=== PATIENT | female | born 1950 | race American Indian/Alaskan Native ===

== ENCOUNTER → 2017-04-26 22:40 | Emergency (ER) | payer MEDICARE ==
[~2017-04-26 22:40] MED LIST: Dexamethasone IV* 4 MG/ML 1 ML (4 MG) IV SLOW PU ONE; Ketorolac INJ* 30 MG/ML 1 ML VIAL IV PUSH ONE; Ondansetron INJ* 2 MG/ML VIAL IV ONE; Pregabalin CAP(*) 50 MG PO ONE; fentaNYL* 50 MCG/ML 2 ML VIAL (100 MCG VIAL) IV SLOW PU ONE
[2017-04-27 00:41] LABS: ABS Basophils 0 10^3/ul (0-0.2); ABS Eosinophils 0.4 10^3/ul (0-0.6); ABS Lymphocytes 1.5 10^3/ul (1.0-4.8); ABS Monocytes 0.5 10^3/ul (0-0.8); ABS Neutrophils 2.5 10^3/ul (1.5-7.7); ABS Nucleated RBC 0 10^3/ul; Eosinophil % 7.7 % (0-6); Hematocrit 37 % (35-47); Hemoglobin 12.5 g/dl (12.0-16.0); Lymphocyte % 29.4 % (25-47); Mean Corpuscular HGB Conc 34 g/dl (31-36); Mean Corpuscular Hemoglobin 32 pg (27-31); Mean Corpuscular Volume 96 fL (80-97); Mean Platelet Volume 8 um3 (7.4-10.4); Nucleated Red Blood Cells % 0.1; Platelet Count 139 10^3/ul (150-450); Red Blood Count 3.87 10^6/ul (4.0-5.4); Red Cell Distribution Width 13 % (10.5-15)
[2017-04-27 01:25] VITALS: BP 165/67
--- NOTE | 2017-04-27 02:38 | ED ---
Ria Malin Julia, scribed for Arlyn Aguilera MD on 04/26/17 at 2331 . Lower Extremity - HPI Summary HPI Summary: This patient is a 67 year old F presenting to [facility] with a chief complaint of RLE pain and weakness for the past week worsening the past two days. She states the pain is typically worse at night. The patient rates the pain 10/10 in severity. Patient denies back pain, trauma, and urinary symptoms. She states she has been walking with cane recently due to pain. She took a muscle relaxer at 22:00 without relief. Patient had spinal stenosis surgery on 03/24/2017, performed by Dr. Venegas at [place] - History of Current Complaint Chief Complaint: EDExtremityLower Stated Complaint: RIGHT LEG PAIN Time Seen by Provider: 04/26/17 23:17 Hx Obtained From: Patient Onset of Pain: Days Onset/Duration: Worse Since - past two days Pain Intensity: 10 Pain Scale Used: 0-10 Numeric Timing: Constant Location: Is Discrete @ - RLE Associated Signs And Symptoms: Positive: Weakness Aggravating Factor(s): Ambulation Able to Bear Weight: Yes - Allergies/Home Medications Allergies/Adverse Reactions: Allergies Allergy/AdvReac Type Severity Reaction Status Date / Time codeine Allergy Nausea And Verified 04/26/17 22:59 Vomiting DAIRY Allergy Runny Nose Uncoded 04/26/17 22:59 ENVIRONMENTAL Allergy Sneezing Uncoded 04/26/17 22:59 MUSHROOMS Allergy MIGRAINES Uncoded 04/26/17 22:59 YOGURT Allergy STUFFY, Uncoded 04/26/17 22:59 RUNNY NOSE PMH/Surg Hx/FS Hx/Imm Hx Endocrine/Hematology History: Reports: Hx Thyroid Disease - HYPOTHYROID, Hx Anemia - HX Denies: Hx Diabetes Cardiovascular History: Reports: Hx Hypertension - ON MEDICATION FOR, Hx Peripheral Vascular Disease - Vericose Veins Denies: Hx Pacemaker/ICD Respiratory History: Reports: Hx Asthma - ALLERGY INDUCED, Hx Sleep Apnea - ??? GI History: Reports: Other GI Disorders - HX OF GASTROPLASTY Musculoskeletal History: Reports: Hx Arthritis, Hx Bursitis, Hx Tendonitis, Other Musculoskeletal History - Left total knee replacement Sensory History: Reports: Hx Cataracts, Hx Contacts or Glasses Denies: Hx Hearing Aid Opthamlomology History: Reports: Hx Cataracts, Hx Contacts or Glasses Neurological History: Reports: Hx Headaches, Hx Migraine - HX OF IN THE PAST- NOW INFREQUENT, Hx Transient Ischemic Attacks (TIA) - 2009, Other Neuro Impairments/Disorders - Vertigo Psychiatric History: Denies: Hx Panic Disorder - Cancer History Cancer Type, Location and Year: Melanoma left forearm- removed August 2014 - Surgical History Surgery Procedure, Year, and Place: 03/2012-LEFT TOTAL KNEE REPLACEMENT-[place]. VARICOSE VEIN -2011. STOMACH STAPELING- AGE 32. REPAIR RIGHT LEG FRACTURE- [place]-. EXCISION LEFT INDEX FINGER. Melanoma removed Left Forearm August 2014. EXCISION RIGHT MIDDLE FINGER. BILATERAL CARPAL TUNNEL RELEASE Hx Anesthesia Reactions: Yes - DIFFICULTY PLACING SPINAL Infectious Disease History: Yes Infectious Disease History: Reports: Hx Shingles Denies: Traveled Outside the [place] in Last 30 Days - Family History Known Family History: Positive: Hypertension - Social History Alcohol Use: None Substance Use Type: Reports: None Smoking Status (MU): Never Smoked Tobacco Have You Smoked in the Last Year: No Review of Systems Positive: no symptoms reported Musculoskeletal: Negative - back pain Positive: Myalgia - RLE pain Positive: Weakness - RLE All Other Systems Reviewed And Are Negative: Yes Physical Exam - Summary Physical Exam Summary: VITAL SIGNS: Reviewed. GENERAL: Patient is a well-developed and nourished female who is lying comfortable in the stretcher. Patient is not in any acute respiratory distress. HEAD AND FACE: No signs of trauma. No ecchymosis, hematomas or skull depressions. No sinus tenderness. EYES: PERRLA, EOMI x 2, No injected conjunctiva, no nystagmus. EARS: Hearing grossly intact. Ear canals and tympanic membranes are within normal limits. MOUTH: Oropharynx within normal limits. NECK: Supple, trachea is midline, no adenopathy, no JVD, no carotid bruit, no c- spine tenderness, neck with full ROM. CHEST: Symmetric, no tenderness at palpation SKIN: Dry and warm LUNGS: Clear to auscultation bilaterally. No wheezing or crackles. CVS: Regular rate and rhythm, S1 and S2 present, no murmurs or gallops appreciated. ABDOMEN: Soft, non-tender. No signs of distention. No rebound no guarding, and no masses palpated. Bowel sounds are normal. EXTREMITIES: FROM in all major joints, no edema, no cyanosis or clubbing. Tenderness over anterior aspect of right thigh. Positive straight leg test at 20 degrees. No lumbosacral tenderness, with a well healed incision. NEURO: Alert and oriented x 3. Speech is normal and follows commands. Decreased sensation over anterior aspect of right leg and foot. Mild weakness with dorsiflexion of right ankle. Triage Information Reviewed: Yes Vital Signs On Initial Exam: Initial Vitals Temp Pulse Resp BP Pulse Ox 97.5 F 71 16 168/88 96 04/26/17 22:54 04/26/17 22:54 04/26/17 22:54 04/26/17 22:54 04/26/17 22:54 Vital Signs Reviewed: Yes Diagnostics - Vital Signs Vital Signs Temp Pulse Resp BP Pulse Ox 04/26/17 22:54 97.5 F 71 16 168/88 96 - Laboratory Result Diagrams: 04/27/17 00:15 04/27/17 00:15 Lab Statement: Any lab studies that have been ordered have been reviewed, and results considered in the medical decision making process. Re-Evaluation - Re-Evaluation 1 Re-Evaluation Time: 12:51 Change: Improved - Patient states pain is improved. Patient can ambulate without difficulty. Comment: Patient's pain is improved. Patient can ambulate well. Discussed discharge with patient. Lower Extremity Course/Dx - Course Course Of Treatment: Patient presents with RLE pain and weakness for the past week worsening the past two days. Patient denies back pain, trauma, and urinary symptoms. Patient had spinal stenosis surgery on 03/24/2017, performed by Dr. Venegas at [place]. Bloodwork is unremarkable. Patient is given Decadron, Fentanyl, Toradol, Zofran, and Lyrica. While in ED patient states her pain has improved and she is able to ambulate. Patient is instructed to follow up with her surgeon tomorrow. - Diagnoses Provider Diagnoses: Lumbar radiculopathy Discharge - Discharge Plan Condition: Stable Disposition: HOME Prescriptions: Dexamethasone TAB* [Decadron TAB*] 4 mg PO TID #14 tab oxyCODONE/Acetamin 5/325 MG* [Percocet 5/325 TAB*] 1 tab PO Q6H PRN #14 tab MDD 4 PRN Reason: Pain Patient Education Materials: Lumbar Radiculopathy (ED) Referrals: Travis Delgadillo MD [Primary Care Provider] - Additional Instructions: Follow up with your neurosurgeon, Dr. Venegas, tomorrow. RETURN TO THE EMERGENCY DEPARTMENT FOR CHANGING OR WORSENING SYMPTOMS. The documentation as recorded by the Ria guzman Julia accurately reflects the service I personally performed and the decisions made by me, Arlyn Aguilera MD.
== END | disposition home or self-care (01) ==
LOC: ED 22:40
DX: M54.16 Radiculopathy, lumbar region (principal); M79.604 Pain in right leg; R53.1 Weakness
CPT/HCPCS: 36415; 80053; 85025; 86140; 96374; 96375; 99283; A9270-GY; J1100; J2405; J3010